=== PATIENT | female | born 2005 | race Two or more races ===

== ENCOUNTER 2023-05-24 04:48 | Observation (INO) | payer OTHER ==
[~2023-05-24] VITALS: Ht 167.6 cm; Wt 76.8 kg
[~2023-05-24 04:48] MED LIST: ACET-897 PO; PNV,1TAB3 PO; SERT50TA29 PO
[2023-05-24 06:02] LABS: VENOUS BASE EXCESS -0.3 (-2.0-2.0); VENOUS HCO3 24.2 MMOL/L (23.0-27.0); VENOUS O2 SATURATION 91.8 % (60.0-80.0); VENOUS PARTIAL PRESSURE CO2 39.3 mmHg (38.0-50.0); VENOUS PARTIAL PRESSURE O2 65.8 mmHg (30.0-50.0); VENOUS PH 7.408 UNITS (7.330-7.430); VENOUS STANDARD HCO3 24.1 MMOL/L; VENOUS TOTAL CO2 25.4 MMOL/L (24.0-28.0)
[2023-05-24 06:09] LABS: BASO % 0.2 % (0.0-1.0); EOS % 0.2 % (0.0-3.0); LYMPH # 1.1 10^3/uL (1.5-5.0); MEAN CORPUSCULAR HGB CONC 33.3 g/dl (32.0-36.5); MEAN CORPUSCULAR VOLUME 83.9 fl (80.0-96.0); MONO # 0.5 10^3/uL (0.0-0.8); MONO % 8.3 % (2.0-8.0); NEUTROPHILS % 70.8 % (36.0-66.0); PLATELET COUNT, AUTOMATED 280 10^3/uL (150-450); RED BLOOD COUNT 3.22 10^6/uL (4.00-5.40); WHITE BLOOD COUNT 5.6 10^3/uL (4.0-10.0)
[2023-05-24 06:33] LABS: CPK CREATINE PHOSPHOKINASE 83 U/L (34-145)
[2023-05-24 06:39] LABS: ALBUMIN 2.2 G/DL (3.2-5.2); ALKALINE PHOSPHATASE 63 U/L (46-116); ALT/SGPT 11 U/L (7.0-40); AST/SGOT 24 U/L (<34); BILIRUBIN,DIRECT 0.2 MG/DL (<0.4); BILIRUBIN,TOTAL 0.4 MG/DL (0.3-1.2); BLOOD UREA NITROGEN < 5 MG/DL (9-23); CALCIUM LEVEL 8.6 MG/DL (8.5-10.1); CARBON DIOXIDE LEVEL 24 MMOL/L (20-31); CHLORIDE LEVEL 104 MMOL/L (98-107); CK-MB VALUE MASS 2.1 NG/ML (<3.6); CREATININE FOR GFR 0.37 MG/DL (0.55-1.30); GLUCOSE, FASTING 78 MG/DL (60-100); MB/CK RELATIVE INDEX 2.53 (< OR =4); POTASSIUM SERUM 3.5 MMOL/L (3.5-5.1); SODIUM LEVEL 135 MMOL/L (136-145); THYROID STIMULATING HORMONE 1.332 uIU/ML (0.48-4.17); TOTAL PROTEIN 7.1 G/DL (5.7-8.2)
[2023-05-24 09:39] LABS: ABG BASE EXCESS -0.6 (-2.0-2.0); ABG HCO3 22.8 MMOL/L (22.0-26.0); ABG O2 SATURATION 98.6 % (95.0-99.0); ABG PARTIAL PRESSURE CO2 32.6 mmHg (35.0-45.0); ABG PARTIAL PRESSURE O2 126.8 mmHg (75.0-100.0); ABG TOTAL CO2 23.8 MMOL/L (22.0-29.0); ABG pH (ARTERIAL) 7.462 UNITS (7.350-7.450)
[2023-05-24 09:56] LABS: MB/CK RELATIVE INDEX 2.43 (< OR =4)
[2023-05-24] MEDS ORDERED: MED REC IN PROGRESS XX SCH (10:15)
[2023-05-24] MEDS ORDERED: HOME MED LIST COMPLETE! XX SCH (10:30)
[2023-05-24 17:19] VITALS: BP 130/88; TEMP 98.8; O2SAT 100
[2023-05-24] MEDS ORDERED: ACETAMINOPHEN 500 MG TAB PO ONE (18:15)
[2023-05-24] MEDS: PERCOCET 5MG/325MG TAB PO PRN (21:45)
[2023-05-24 22:00] VITALS: BP 132/95; TEMP 97.9; O2SAT 99
[2023-05-24 23:20] VITALS: BP 107/76; TEMP 97; O2SAT 100
[2023-05-25 02:31] VITALS: BP 125/80; TEMP 98.8; O2SAT 97
[2023-05-25] MEDS ORDERED: ACETAMINOPHEN TAB 650MG DOSE (2X325MG) PO ONE ×2 (03:00→14:00)
[2023-05-25] MEDS ORDERED: LIDOCAINE 5% (LIDODERM) PATCH TD ONE ×2 (03:00→14:00)
[2023-05-25] MEDS ORDERED: oxyCODONE 5MG TAB PO ONE (04:00)
[2023-05-25 05:42] LABS: LDH LACTATE DEHYDROGENASE 175 U/L (120-246)
[2023-05-25 05:43] LABS: IRON (FE) 24 UG/DL (50-170); PERCENT SATURATION 10.3 % (13.2-45.0); TOTAL IRON BINDING CAPACITY 233 UG/DL (250-425)
[2023-05-25 05:46] LABS: FERRITIN 58.4 NG/ML (7.3-270.7)
[2023-05-25 07:29] VITALS: BP 116/70; TEMP 98.2; O2SAT 100
[2023-05-25] MEDS: PERCOCET 5MG/325MG TAB PO PRN ×2 (08:25→15:34)
[2023-05-25 09:04] LABS: RHEUMATOID FACTOR QUANT < 3.5 IU/ML (<14)
[2023-05-25] MEDS ORDERED: NS 1,000 ML IV SCH (10:20)
[2023-05-25 11:13] LABS: BLOOD UREA NITROGEN < 5 MG/DL (9-23); CALCIUM LEVEL 8.3 MG/DL (8.5-10.1); CARBON DIOXIDE LEVEL 20 MMOL/L (20-31); CHLORIDE LEVEL 104 MMOL/L (98-107); CREATININE FOR GFR 0.35 MG/DL (0.55-1.30); GLUCOSE, FASTING 71 MG/DL (60-100); POTASSIUM SERUM 3.4 MMOL/L (3.5-5.1); SODIUM LEVEL 134 MMOL/L (136-145)
[2023-05-25 11:14] VITALS: BP 131/90
[2023-05-25 11:14] LABS: BASO % 0.2 % (0.0-1.0); EOS % 0.2 % (0.0-3.0); HEMATOCRIT 25.4 % (36.0-47.0); HEMOGLOBIN 8.5 g/dl (12.0-15.5); LYMPH # 0.8 10^3/uL (1.5-5.0); LYMPH % 15.7 % (24.0-44.0); MEAN CORPUSCULAR HEMOGLOBIN 28.4 pg (27.0-33.0); MEAN CORPUSCULAR HGB CONC 33.5 g/dl (32.0-36.5); MEAN CORPUSCULAR VOLUME 84.9 fl (80.0-96.0); MONO # 0.5 10^3/uL (0.0-0.8); MONO % 9.9 % (2.0-8.0); NEUTROPHILS # 3.6 10^3/uL (1.5-8.5); NEUTROPHILS % 73.6 % (36.0-66.0); PLATELET COUNT, AUTOMATED 265 10^3/uL (150-450); RED BLOOD COUNT 2.99 10^6/uL (4.00-5.40); WHITE BLOOD COUNT 4.8 10^3/uL (4.0-10.0)
[2023-05-25] MEDS ORDERED: KCL 10MEQ/100ML SWI (KRUN) 10 MEQ in IV 1 EA IV SCH (13:00)
[2023-05-25 13:13] LABS: MONO REFLEX EBV COMP NEGATIVE (NEGATIVE)
[2023-05-25 13:42] LABS: HIV 1&2 SCREEN NEGATIVE (NEGATIVE)
[2023-05-25] MEDS ORDERED: POTASSIUM CHLORIDE 10MEQ SR TABLET PO ONE (14:00)
[2023-05-25 14:41] LABS: MAGNESIUM LEVEL 1.5 MG/DL (1.8-2.4)
[2023-05-25] MEDS ORDERED: PERCOCET 5MG/325MG TAB PO ONE (15:30)
[2023-05-28 08:10] LABS: CYTOMEGALOVIRUS IgG ANTIBODY <0.60 U/mL (0.00-0.59); CYTOMEGALOVIRUS IgM ANTIBODY <30.0 AU/mL (0.0-29.9)
[2023-05-28 17:07] LABS: EBV AB TO NUCLEAR ANTIGEN >600.0 U/mL (0.0-17.9); EBV VIRAL CAPSID AG IgM <36.0 U/mL (0.0-35.9)
== END 2023-05-25 15:45 | disposition other institution (70) ==
LOC: M ED 04:48 → INTOOBSV 13:30 → M ED INP 13:30 → M MSPAV 17:12 → M PCU 23:20
PROVIDERS: ADMIT Advanced Practice Midwife; ATTEND Obstetrics & Gynecology
DX: O99.413 Diseases of the circulatory system complicating pregnancy, third trimester (principal); I31.39 Other pericardial effusion (noninflammatory); R07.9 Chest pain, unspecified; O99.511 Diseases of the respiratory system complicating pregnancy, first trimester; J90 Pleural effusion, not elsewhere classified; R59.0 Localized enlarged lymph nodes; O99.013 Anemia complicating pregnancy, third trimester; D50.9 Iron deficiency anemia, unspecified; Z3A.34 34 weeks gestation of pregnancy; R00.0 Tachycardia, unspecified; R82.71 Bacteriuria; R06.02 Shortness of breath; D57.3 Sickle-cell trait; Z79.899 Other long term (current) drug therapy; Z79.2 Long term (current) use of antibiotics

== ENCOUNTER 2023-06-06 17:41 | Outpatient (CLI) | payer OTHER ==
[~2023-06-06] VITALS: Ht 167.6 cm; Wt 72.8 kg
[2023-06-06] MEDS ORDERED: HYDR100T33 (18:05)
[2023-06-06] MEDS ORDERED: COLC0.6T47 (18:05)
[2023-06-06] MEDS ORDERED: PRED10TA2 (18:05)
[2023-06-06] MEDS ORDERED: SERT50TA29 (18:05)
[2023-06-06 18:14] VITALS: BP 135/85; O2SAT 99
[2023-06-06 19:06] VITALS: BP 139/87
== END 2023-06-06 19:24 | disposition home or self-care (01) ==
LOC: M LDO 17:41
PROVIDERS: ATTEND Obstetrics & Gynecology
DX: O36.8130 Decreased fetal movements, third trimester, not applicable or unspecified (principal); O26.893 Other specified pregnancy related conditions, third trimester; M32.9 Systemic lupus erythematosus, unspecified; Z3A.33 33 weeks gestation of pregnancy; Z79.52 Long term (current) use of systemic steroids; Z79.899 Other long term (current) drug therapy
CPT/HCPCS: 59025; G0463

== ENCOUNTER 2023-06-12 13:30 | Outpatient (CLI) | payer OTHER ==
[~2023-06-12] VITALS: Ht 167.6 cm; Wt 73.0 kg
[~2023-06-12 13:30] MED LIST changes: +ALBUTEROL SULFATE 2.5MG/0.5ML INH NEB SOLN INH PRN; +COLC0.6T47; +EPINEPHrine INJ 1 MG/ML 1ML AMP IM PRN; +HYDR100T33; +IRON SUCROSE 300 MG in NS 250 ML OVER 90 MIN. IV ONE; +NS 1,000 ML IV SCH; +PRED10TA2; +SERT50TA29; +diphenhydrAMINE 50MG/ML VIAL IV PRN; +methylPREDNISolone 125MG 2ML VIAL IV PRN
[2023-06-12 13:40] VITALS: BP 130/75; O2SAT 99
[2023-06-12] MEDS ORDERED: LABE20TAB PO (14:00)
[2023-06-12 15:50] VITALS: BP 137/83; O2SAT 98
== END 2023-06-12 15:50 | disposition home or self-care (01) ==
LOC: M INFU 13:30
PROVIDERS: ATTEND Nurse Practitioner Women's Health
DX: D50.9 Iron deficiency anemia, unspecified (principal)
CPT/HCPCS: 96365; 96366; J1756

== ENCOUNTER 2023-06-19 12:20 | Outpatient (CLI) | payer OTHER ==
[~2023-06-19] VITALS: Ht 167.6 cm; Wt 70.6 kg
[~2023-06-19 12:20] MED LIST changes: -COLC0.6T47; +COLC0.6T47 PO; -HYDR100T33; +HYDR100T33 PO; -IRON SUCROSE 300 MG in NS 250 ML OVER 90 MIN. IV ONE; +LABE20TAB PO; -NS 1,000 ML IV SCH; -PRED10TA2; +PRED10TA2 PO; -SERT50TA29
[2023-06-19 12:22] VITALS: BP 131/68; O2SAT 100
[2023-06-19] MEDS ORDERED: NS 1,000 ML IV SCH (12:30)
[2023-06-19] MEDS ORDERED: IRON SUCROSE 300 MG in NS 250 ML OVER 90 MIN. IV ONE (12:30)
[2023-06-19 14:50] VITALS: BP 119/72; O2SAT 100
== END 2023-06-19 14:50 | disposition home or self-care (01) ==
LOC: M INFU 12:20
PROVIDERS: ATTEND Nurse Practitioner Women's Health
DX: D50.9 Iron deficiency anemia, unspecified (principal)
CPT/HCPCS: 96365; 96366; J1756

== ENCOUNTER 2023-06-21 12:12 | Inpatient (IN) | payer OTHER ==
[2023-06-21] VITALS (7 sets, daily range): BP systolic 124–145; BP diastolic 58–90
[~2023-06-21] VITALS: Ht 167.6 cm; Wt 71.3 kg
[~2023-06-21 12:12] MED LIST changes: -ACET-683 PO; -COLA100C5 PO; -IBUP80TA PO; -OXYC-517 PO; -PRED5TA PO; +UNRESOLVED CLARIFICATION ENTRY XX SCH
[2023-06-21] MEDS ORDERED: LACTATED RINGER'S 1000 ML IV STA (12:14)
[2023-06-21] MEDS ORDERED: METHYLERGONOVINE MALEATE 0.2MG/ML 1ML VIAL IM PRN (12:15)
[2023-06-21] MEDS ORDERED: OXYTOCIN DRIP 30 UNITS in IV 1 EA IV PRN ×6 (12:15)
[2023-06-21] MEDS ORDERED: OXYTOCIN INJ 10UNITS/ML 1ML VIAL IM PRN (12:15)
[2023-06-21] MEDS ORDERED: CARBOPROST TROMETHAMINE 250 MCG/ML AMP IM PRN (12:15)
[2023-06-21] MEDS: LR 1,000 ML IV SCH ×2 (12:15→20:15)
[2023-06-21] MEDS ORDERED: TRANEXAMIC ACID INJection 1,000 MG in NS 100 ML IV PRN (12:15)
[2023-06-21] MEDS ORDERED: LIDOCAINE 1% MDV 20ML VIAL INFIL PRN (12:15)
[2023-06-21 13:27] LABS: HEMATOCRIT 28.8 % (36.0-47.0); HEMOGLOBIN 10.3 g/dl (12.0-15.5); MEAN CORPUSCULAR HEMOGLOBIN 31.2 pg (27.0-33.0); MEAN CORPUSCULAR HGB CONC 35.8 g/dl (32.0-36.5); MEAN CORPUSCULAR VOLUME 87.3 fl (80.0-96.0); PLATELET COUNT, AUTOMATED 301 10^3/uL (150-450); WHITE BLOOD COUNT 6.7 10^3/uL (4.0-10.0)
[2023-06-21 13:52] LABS: LDH LACTATE DEHYDROGENASE 157 U/L (120-246)
[2023-06-21 13:53] LABS: ALT/SGPT 14 U/L (7.0-40); AST/SGOT 17 U/L (<34); BILIRUBIN,TOTAL 0.3 MG/DL (0.3-1.2); CREATININE FOR GFR 0.37 MG/DL (0.55-1.30)
[2023-06-21] MEDS ORDERED: miSOPROStol 25MCG 1/4 TABLET PO SCH (14:00)
[2023-06-21 15:33] LABS: APPEARANCE, URINE CLEAR (CLEAR); BACTERIA, URINE AUTO NEGATIVE (NEGATIVE); BILIRUBIN, URINE AUTO NEGATIVE (NEGATIVE); BLOOD, URINE BLOOD NEGATIVE (NEGATIVE); COLOR, URINE YELLOW (YELLOW); GLUCOSE, URINE (UA) AUTO NEGATIVE (NEGATIVE); KETONE, URINE AUTO NEGATIVE (NEGATIVE); LEUKOCYTE ESTERASE, URINE AUTO 3+ (NEGATIVE); NITRITE, URINE AUTO NEGATIVE (NEGATIVE); PROTEIN, URINE AUTO NEGATIVE (NEGATIVE); RBC, URINE AUTO 0 /HPF (0-3); SPECIFIC GRAVITY URINE AUTO 1.011 (1.002-1.035); SQUAMOUS EPITHELIAL CELL UR AU 1 /HPF (0-6); UROBILINOGEN, URINE AUTO 0.2 mg/dL (0.0-2.0); WBC, URINE AUTO 0 /HPF (0-3)
[2023-06-21 15:43] LABS: TOTAL PROTEIN,RANDOM URINE 10.6 MG/DL (0.0-14.0)
[2023-06-21 15:48] LABS: CREATININE,RANDOM URINE 48.6 MG/DL
[2023-06-21] MEDS: BETAMETHASONE SOLUSPAN 6MG/ML 5ML VIAL IM SCH (16:14)
[2023-06-21] MEDS ORDERED: HOME MED LIST COMPLETE! XX SCH (17:55)
[2023-06-21] MEDS: miSOPROStol 50MCG 1/2 TABLET PO SCH (20:31)
[2023-06-21] MEDS ORDERED: predniSONE 5 MG TAB PO SCH (21:00)
[2023-06-21] MEDS ORDERED: predniSONE 10MG TAB PO SCH (21:00)
[2023-06-21] MEDS: HYDROXYCHLOROQUINE 200 MG TAB PO SCH (21:31)
[2023-06-21] MEDS: predniSONE 5 MG TAB PO SCH (21:32)
[2023-06-21] MEDS: LABETALOL 200 MG TAB PO SCH (21:33)
[2023-06-22] VITALS (32 sets, daily range): BP systolic 111–141; BP diastolic 58–93
[2023-06-22] MEDS ORDERED: NALBUPHINE HCL 1MG/0.1ML (100MG/10ML) MDV IV PRN (00:45)
[2023-06-22] MEDS ORDERED: PROMETHAZINE 25MG/ML 1ML VIAL IV PRN (00:45)
[2023-06-22] MEDS: miSOPROStol 50MCG 1/2 TABLET PO SCH ×6 (00:57→21:59)
[2023-06-22] MEDS: LR 1,000 ML IV SCH ×3 (04:15→20:15)
[2023-06-22] MEDS: LABETALOL 200 MG TAB PO SCH ×3 (06:28→22:04)
[2023-06-22] MEDS: PRENATAL VITAMINS CHEWABLE TABLET PO SCH (08:55)
[2023-06-22] MEDS: SERTRALINE HCL 50 MG TAB PO SCH (08:56)
[2023-06-22] MEDS: predniSONE 5 MG TAB PO SCH ×2 (10:51→21:59)
[2023-06-22] MEDS: HYDROXYCHLOROQUINE 200 MG TAB PO SCH ×2 (10:51→21:59)
[2023-06-22] MEDS: BETAMETHASONE SOLUSPAN 6MG/ML 5ML VIAL IM SCH (15:36)
[2023-06-23] VITALS (39 sets, daily range): BP systolic 117–195; BP diastolic 57–117; TEMP 97.4; O2SAT 98–100
[2023-06-23] MEDS: miSOPROStol 50MCG 1/2 TABLET PO SCH (02:35)
[2023-06-23] MEDS ORDERED: ONDANSETRON 4MG 2ML VIAL IV ONE (05:00)
[2023-06-23] MEDS ORDERED: OXYTOCIN DRIP 30 UNITS in IV 1 EA IV SCH ×2 (05:05→12:35)
[2023-06-23] MEDS ORDERED: EPIDURAL/PCA KEYS XX PRN (06:15)
[2023-06-23] MEDS ORDERED: FENTANYL/ROPIVACAINE/NACL BAG 100 ML EPIDURAL SCH (06:15)
[2023-06-23] MEDS ORDERED: ONDANSETRON 4MG 2ML VIAL IV PRN ×3 (06:15→12:35)
[2023-06-23] MEDS ORDERED: NALOXONE INJ 0.4MG/1ML VIAL IV PRN ×3 (06:15→11:05)
[2023-06-23] MEDS ORDERED: LR 500 ML IV PRN (06:15)
[2023-06-23] MEDS ORDERED: diphenhydrAMINE 50MG/ML VIAL IV PRN ×2 (06:15→11:05)
[2023-06-23] MEDS ORDERED: ePHEDrine SULFATE 25 MG/5 ML(5MG/ML) SYRINGE IVP PRN (06:15)
[2023-06-23] MEDS: LR 1,000 ML IV SCH ×5 (06:31→20:35)
[2023-06-23] MEDS: LABETALOL 200 MG TAB PO SCH ×3 (06:35→22:33)
[2023-06-23] MEDS ORDERED: PRENATAL VITAMINS CHEWABLE TABLET PO SCH (09:00)
[2023-06-23] MEDS: HYDROXYCHLOROQUINE 200 MG TAB PO SCH ×2 (09:28→20:34)
[2023-06-23] MEDS: predniSONE 5 MG TAB PO SCH ×2 (09:28→20:43)
[2023-06-23] MEDS: PRENATAL VITAMINS CHEWABLE TABLET PO SCH (09:28)
[2023-06-23] MEDS: SERTRALINE HCL 50 MG TAB PO SCH (09:28)
[2023-06-23] MEDS ORDERED: ceFAZolin SOD 2 GM in IV 1 EA IV ONE (10:55)
[2023-06-23] MEDS ORDERED: AZITHROMYCIN INJ 500 MG, VIAL MATE ADAPTER 1 EACH in NS 250 ML IV ONE (10:55)
[2023-06-23] MEDS ORDERED: BICITRA 30ML SOLN UDC PO ONE (10:55)
[2023-06-23] MEDS ORDERED: MORPHINE PRES-FREE INJ 10 MG/10 ML VIAL As Ordered ONE (11:04)
[2023-06-23] MEDS ORDERED: METOCLOPRAMIDE INJ 10MG/2ML VIAL IV PRN ×2 (11:05→12:35)
[2023-06-23] MEDS ORDERED: **NOTE PATIENT COMMENT** MISC XX SCH (11:05)
[2023-06-23] MEDS ORDERED: NORCO, ANEXSIA 5/325MG TABLET (HYDROcodone/ACETAMINOPHEN) PO ONE (11:05)
[2023-06-23] MEDS ORDERED: LIDOCAINE 2% W/EPINEPHRINE 20ML VIAL **PRES FREE As Ordered ONE (11:05)
[2023-06-23] MEDS ORDERED: OXYTOCIN 30UNITS IN 0.9% NaCl 500ML IV BAG As Ordered ONE (11:06)
[2023-06-23] MEDS ORDERED: ONDANSETRON 4MG 2ML VIAL As Ordered ONE (11:32)
[2023-06-23] MEDS ORDERED: PHENYLephrine 500MCG 5ML (100MCG/ML) SYRINGE As Ordered ONE (11:35)
[2023-06-23] MEDS ORDERED: ACETAMINOPHEN 1000MG 100ML IV BAG As Ordered ONE (11:37)
[2023-06-23 11:45] LABS: CORD GAS ABE V -2.3; CORD GAS HCO3 V 24.3 MMOL/L; CORD GAS O2 SAT V 76.1 %; CORD GAS PCO2 V 48.4 mmHg; CORD GAS PH V 7.318 UNITS; CORD GAS PO2 V 32.5 mmHg; CORD GAS TCO2 V 25.8 MMOL/L
[2023-06-23 11:47] LABS: CORD GAS ABE A -4.8; CORD GAS HCO3 A 24.2 MMOL/L; CORD GAS PCO2 A 61.5 mmHg; CORD GAS PH A 7.212 UNITS; CORD GAS PO2 A 19.5 mmHg; CORD GAS SBC A 19.3 MMOL/L
[2023-06-23] MEDS ORDERED: SIMETHICONE 80MG CHEW TAB PO PRN (12:35)
[2023-06-23] MEDS ORDERED: oxyCODONE 5MG TAB PO PRN ×2 (12:35)
[2023-06-23] MEDS ORDERED: METHYLERGONOVINE MALEATE 0.2MG/ML 1ML VIAL IM PRN (12:35)
[2023-06-23] MEDS ORDERED: RHOGAM 300MCG (1500IU) INJ IM SCH (12:35)
[2023-06-23] MEDS ORDERED: KETOROLAC 30 MG/ML 1ML VIAL As Ordered ONE (13:04)
[2023-06-23] MEDS: KETOROLAC 30 MG/ML 1ML VIAL IV SCH ×3 (13:08→23:56)
[2023-06-23] MEDS: SLF 3 ML SYR IV SCH ×2 (14:25→20:34)
[2023-06-23] MEDS: DOCUSATE SODIUM 100MG CAPSULE PO SCH ×2 (14:25→20:34)
[2023-06-23] MEDS: ACETAMINOPHEN 500 MG TAB PO SCH ×2 (17:44→23:56)
[2023-06-24] MEDS: LABETALOL 200 MG TAB PO SCH ×3 (05:39→21:54)
[2023-06-24] MEDS: KETOROLAC 30 MG/ML 1ML VIAL IV SCH (05:40)
[2023-06-24] MEDS: ACETAMINOPHEN 500 MG TAB PO SCH ×4 (05:40→23:33)
[2023-06-24 05:45] VITALS: BP 106/51
[2023-06-24 08:09] LABS: HEMATOCRIT 23.4 % (36.0-47.0); HEMOGLOBIN 7.8 g/dl (12.0-15.5); MEAN CORPUSCULAR HGB CONC 33.3 g/dl (32.0-36.5); PLATELET COUNT, AUTOMATED 258 10^3/uL (150-450); WHITE BLOOD COUNT 14.9 10^3/uL (4.0-10.0)
[2023-06-24] MEDS: HYDROXYCHLOROQUINE 200 MG TAB PO SCH ×2 (08:22→21:20)
[2023-06-24] MEDS: PRENATAL VITAMINS CHEWABLE TABLET PO SCH (08:22)
[2023-06-24] MEDS: predniSONE 5 MG TAB PO SCH ×2 (08:22→21:19)
[2023-06-24] MEDS: DOCUSATE SODIUM 100MG CAPSULE PO SCH ×2 (08:22→21:19)
[2023-06-24] MEDS: SERTRALINE HCL 50 MG TAB PO SCH (08:22)
[2023-06-24 10:00] VITALS: BP 102/52; O2SAT 100
[2023-06-24] MEDS: IBUPROFEN 800 MG TAB PO SCH ×2 (14:21→23:33)
[2023-06-24 14:22] VITALS: BP 112/61; O2SAT 100
[2023-06-24 18:00] VITALS: BP 118/66; O2SAT 99
[2023-06-24] MEDS ORDERED: PILL CUTTER 1 EACH XX PRN (21:20)
[2023-06-24 22:00] VITALS: BP 123/61; O2SAT 99
[2023-06-25 02:00] VITALS: BP 113/55; O2SAT 99
[2023-06-25 06:00] VITALS: BP 109/65
[2023-06-25] MEDS: LABETALOL 200 MG TAB PO SCH (06:00)
[2023-06-25] MEDS: ACETAMINOPHEN 500 MG TAB PO SCH ×2 (06:01→11:58)
[2023-06-25] MEDS: IBUPROFEN 800 MG TAB PO SCH (07:29)
[2023-06-25] MEDS ORDERED: MEASLES,MUMPS,RUBELLA VACCINE INJ (MMR-II) SC.IMMUN ONE (09:00)
[2023-06-25] MEDS: predniSONE 5 MG TAB PO SCH (09:34)
[2023-06-25] MEDS: PRENATAL VITAMINS CHEWABLE TABLET PO SCH (09:34)
[2023-06-25] MEDS: SERTRALINE HCL 50 MG TAB PO SCH (09:34)
[2023-06-25] MEDS: DOCUSATE SODIUM 100MG CAPSULE PO SCH (09:35)
[2023-06-25] MEDS: HYDROXYCHLOROQUINE 200 MG TAB PO SCH (09:35)
[2023-06-25] MEDS ORDERED: ACET-683 PO (09:38)
[2023-06-25] MEDS ORDERED: COLA100C5 PO (09:38)
[2023-06-25] MEDS ORDERED: OXYC-517 PO (09:38)
[2023-06-25] MEDS ORDERED: PRED5TA PO (09:38)
[2023-06-25] MEDS ORDERED: IBUP80TA PO (09:38)
[2023-06-25 10:00] VITALS: BP 116/61; O2SAT 100
[2023-06-25] MEDS ORDERED: INFLUENZA QUADRIVALENT PF VACCINE 0.5ML SYRINGE IM.IMMUN ONE (12:00)
[2023-06-25] MEDS ORDERED: BOOSTRIX VACCINE (TETANUS/DIPHTH/ACEL. PERTUSSIS) 0.5ML SYR IM.IMMUN ONE (12:15)
== END 2023-06-25 13:30 | disposition home or self-care (01) | DRG 773 ==
LOC: M LDI 12:12 → M OBS 06-23 14:33
PROVIDERS: ADMIT Obstetrics & Gynecology; ATTEND Obstetrics & Gynecology
PROC: 10D00Z1 Extraction of Products of Conception, Low, Open Approach (ICD-10-PCS; principal; 2023-06-23 10:56)
DX: O41.03X0 Oligohydramnios, third trimester, not applicable or unspecified (principal); Z37.0 Single live birth; Z3A.36 36 weeks gestation of pregnancy; M32.9 Systemic lupus erythematosus, unspecified; O26.899 Other specified pregnancy related conditions, unspecified trimester; Z79.899 Other long term (current) drug therapy; Z79.52 Long term (current) use of systemic steroids; O13.4 Gestational [pregnancy-induced] hypertension without significant proteinuria, complicating childbirth; F39 Unspecified mood [affective] disorder; O99.344 Other mental disorders complicating childbirth; O76 Abnormality in fetal heart rate and rhythm complicating labor and delivery

== ENCOUNTER → 2023-06-21 | Outpatient (CLI) | payer OTHER ==
[~2023-06-21] MED LIST changes: +ACET-683 PO; -ALBUTEROL SULFATE 2.5MG/0.5ML INH NEB SOLN INH PRN; +COLA100C5 PO; -EPINEPHrine INJ 1 MG/ML 1ML AMP IM PRN; +IBUP80TA PO; +OXYC-517 PO; +PRED5TA PO; -diphenhydrAMINE 50MG/ML VIAL IV PRN; -methylPREDNISolone 125MG 2ML VIAL IV PRN
== END ==
LOC: M RAD 11:03
PROVIDERS: ATTEND Obstetrics & Gynecology
DX: O26.893 Other specified pregnancy related conditions, third trimester (principal); M32.9 Systemic lupus erythematosus, unspecified; I31.9 Disease of pericardium, unspecified; O10.013 Pre-existing essential hypertension complicating pregnancy, third trimester; Z3A.35 35 weeks gestation of pregnancy

== ENCOUNTER 2023-06-26 13:00 | Outpatient (CLI) | payer OTHER ==
[~2023-06-26] VITALS: Ht 165.1 cm; Wt 71.3 kg
[2023-06-26 13:00] VITALS: BP 136/74; O2SAT 100
[~2023-06-26 13:00] MED LIST changes: +ACET-683 PO; +ALBUTEROL SULFATE 2.5MG/0.5ML INH NEB SOLN INH PRN; +COLA100C5 PO; +EPINEPHrine INJ 1 MG/ML 1ML AMP IM PRN; +IBUP80TA PO; +IRON SUCROSE 300 MG in NS 250 ML OVER 90 MIN. IV ONE; +NS 1,000 ML IV SCH; +OXYC-517 PO; +PRED5TA PO; -UNRESOLVED CLARIFICATION ENTRY XX SCH; +diphenhydrAMINE 50MG/ML VIAL IV PRN; +methylPREDNISolone 125MG 2ML VIAL IV PRN
[2023-06-26 15:20] VITALS: BP 128/82; O2SAT 98
== END 2023-06-26 15:30 | disposition home or self-care (01) ==
LOC: M INFU 13:00
PROVIDERS: ATTEND Nurse Practitioner Women's Health
DX: D50.9 Iron deficiency anemia, unspecified (principal)
CPT/HCPCS: 96365; 96366; J1756

== ENCOUNTER 2024-01-03 14:52 | Emergency (ER) | payer OTHER ==
[~2024-01-03] VITALS: Ht 167.6 cm; Wt 77.3 kg
[~2024-01-03 14:52] MED LIST changes: -ALBUTEROL SULFATE 2.5MG/0.5ML INH NEB SOLN INH PRN; -EPINEPHrine INJ 1 MG/ML 1ML AMP IM PRN; -IRON SUCROSE 300 MG in NS 250 ML OVER 90 MIN. IV ONE; -NS 1,000 ML IV SCH; -diphenhydrAMINE 50MG/ML VIAL IV PRN; -methylPREDNISolone 125MG 2ML VIAL IV PRN
[2024-01-03] MEDS ORDERED: BACT800T5 PO (18:10)
[2024-01-03 18:22] VITALS: BP 132/73; TEMP 96.7; O2SAT 97
== END 2024-01-03 18:29 | disposition home or self-care (01) ==
LOC: M ED 14:52
DX: L03.032 Cellulitis of left toe (principal); I10 Essential (primary) hypertension; F41.9 Anxiety disorder, unspecified; F32.9 Major depressive disorder, single episode, unspecified; Z79.899 Other long term (current) drug therapy

== ENCOUNTER 2024-02-05 13:04 | Emergency (ER) | payer OTHER ==
[~2024-02-05] VITALS: Ht 167.6 cm; Wt 74.3 kg
[~2024-02-05 13:04] MED LIST changes: +BACT800T5 PO
[2024-02-05 14:28] LABS: BASO % 0.4 % (0.0-1.0); EOS % 0.5 % (0.0-3.0); HEMATOCRIT 39.7 % (36.0-47.0); HEMOGLOBIN 13.8 g/dl (12.0-15.5); LYMPH # 1.3 10^3/uL (1.5-5.0); LYMPH % 22.8 % (24.0-44.0); MEAN CORPUSCULAR HEMOGLOBIN 29.8 pg (27.0-33.0); MEAN CORPUSCULAR HGB CONC 34.8 g/dl (32.0-36.5); MEAN CORPUSCULAR VOLUME 85.7 fl (80.0-96.0); MONO # 0.4 10^3/uL (0.0-0.8); MONO % 6.6 % (2.0-8.0); NEUTROPHILS # 3.9 10^3/uL (1.5-8.5); NEUTROPHILS % 69.3 % (36.0-66.0); PLATELET COUNT, AUTOMATED 291 10^3/uL (150-450); RED BLOOD COUNT 4.63 10^6/uL (4.00-5.40); WHITE BLOOD COUNT 5.6 10^3/uL (4.0-10.0)
[2024-02-05 14:53] LABS: LIPASE 19 U/L (12-53)
[2024-02-05 14:55] LABS: ALBUMIN 4.6 G/DL (3.2-5.2); ALKALINE PHOSPHATASE 80 U/L (46-116); ALT/SGPT 39 U/L (7.0-40); AST/SGOT 44 U/L (<34); BILIRUBIN,DIRECT 0.1 MG/DL (<0.4); BILIRUBIN,TOTAL 0.4 MG/DL (0.3-1.2); BLOOD UREA NITROGEN 6 MG/DL (9-23); CALCIUM LEVEL 10.1 MG/DL (8.5-10.1); CARBON DIOXIDE LEVEL 19 MMOL/L (20-31); CHLORIDE LEVEL 105 MMOL/L (98-107); CREATININE FOR GFR 0.46 MG/DL (0.55-1.30); GLUCOSE, FASTING 66 MG/DL (60-100); POTASSIUM SERUM 3.8 MMOL/L (3.5-5.1); SODIUM LEVEL 137 MMOL/L (136-145); TOTAL PROTEIN 9.1 G/DL (5.7-8.2)
[2024-02-05 15:03] LABS: HCG, SERUM QUALITATIVE NEGATIVE (NEGATIVE)
[2024-02-05] MEDS: ONDANSETRON 4MG 2ML VIAL IV ONE (16:57)
[2024-02-05] MEDS: ACETAMINOPHEN *IV* 1,000 MG in IV 1 EA IV ONE (16:57)
[2024-02-05] MEDS: FAMOTIDINE 20MG/2ML VIAL IVP ONE (16:58)
[2024-02-05 18:45] VITALS: BP 131/70; TEMP 97.5; O2SAT 99
== END 2024-02-05 18:50 | disposition home or self-care (01) ==
LOC: M ED 13:04
DX: K29.70 Gastritis, unspecified, without bleeding (principal); I10 Essential (primary) hypertension; J90 Pleural effusion, not elsewhere classified; Z79.899 Other long term (current) drug therapy
CPT/HCPCS: 80048; 80076; 81001; 83690; 84703; 85025; 87486; 87581; 87633; 87798; 96365; 96366; 96375; 99284; J0131; J2405; S0028

== ENCOUNTER 2024-04-16 17:05 | Emergency (ER) | payer OTHER ==
[~2024-04-16] VITALS: Ht 167.6 cm; Wt 75.9 kg
[2024-04-16] MEDS ORDERED: PRED10TA2 (17:47)
[2024-04-16] MEDS ORDERED: PLAQ200T4 (17:47)
[2024-04-16 18:25] LABS: BASO % 0.4 % (0.0-1.0); HEMATOCRIT 29.5 % (36.0-47.0); HEMOGLOBIN 10.2 g/dl (12.0-15.5); LYMPH # 0.9 10^3/uL (1.5-5.0); LYMPH % 16.3 % (24.0-44.0); MEAN CORPUSCULAR HEMOGLOBIN 30.1 pg (27.0-33.0); MEAN CORPUSCULAR HGB CONC 34.6 g/dl (32.0-36.5); MONO # 0.4 10^3/uL (0.0-0.8); MONO % 6.7 % (2.0-8.0); NEUTROPHILS # 4.2 10^3/uL (1.5-8.5); NEUTROPHILS % 76.2 % (36.0-66.0); PLATELET COUNT, AUTOMATED 211 10^3/uL (150-450); RED BLOOD COUNT 3.39 10^6/uL (4.00-5.40); WHITE BLOOD COUNT 5.5 10^3/uL (4.0-10.0)
[2024-04-16 18:41] LABS: INR 1.12; PROTHROMBIN TIME 14.1 SECONDS (12.5-14.5)
[2024-04-16 19:01] LABS: CK-MB VALUE MASS 11.6 NG/ML (<3.6)
[2024-04-16 19:04] LABS: CPK CREATINE PHOSPHOKINASE 542 U/L (34-145); MB/CK RELATIVE INDEX 2.14 (< OR =4)
[2024-04-16 19:05] LABS: ALBUMIN 3.7 G/DL (3.2-5.2); ALKALINE PHOSPHATASE 64 U/L (46-116); ALT/SGPT 36 U/L (7.0-40); AST/SGOT 35 U/L (<34); BILIRUBIN,DIRECT 0.1 MG/DL (<0.4); BILIRUBIN,TOTAL 0.3 MG/DL (0.3-1.2); BLOOD UREA NITROGEN 6 MG/DL (9-23); CALCIUM LEVEL 9.5 MG/DL (8.5-10.1); CARBON DIOXIDE LEVEL 25 MMOL/L (20-31); CHLORIDE LEVEL 107 MMOL/L (98-107); CREATININE FOR GFR 0.49 MG/DL (0.55-1.30); GLUCOSE, FASTING 116 MG/DL (60-100); POTASSIUM SERUM 3.5 MMOL/L (3.5-5.1); SODIUM LEVEL 138 MMOL/L (136-145); THYROID STIMULATING HORMONE 0.249 uIU/ML (0.48-4.17); THYROXINE (T4) 10.2 UG/DL (5.5-11.1); TOTAL PROTEIN 7.7 G/DL (5.7-8.2)
[2024-04-16 19:17] LABS: HCG, SERUM QUALITATIVE NEGATIVE (NEGATIVE)
[2024-04-16 21:32] LABS: PROCALCITONIN <0.04 ng/ml
[2024-04-16 22:00] VITALS: TEMP 98
[2024-04-16 22:15] VITALS: BP 132/64; O2SAT 99
[2024-04-16] MEDS ORDERED: PRED20TA PO (22:25)
[2024-04-16] MEDS: methylPREDNISolone 125MG 2ML VIAL IV ONE (22:32)
== END 2024-04-16 22:35 | disposition home or self-care (01) ==
LOC: M ED 17:05
DX: R07.1 Chest pain on breathing (principal); I31.39 Other pericardial effusion (noninflammatory); Z79.899 Other long term (current) drug therapy
CPT/HCPCS: 71046; 71275; 80048; 80076; 82550; 82553; 83605; 83880; 84145; 84436; 84443; 84484; 84703; 85025; 85610; 85652; 86140; 87486; 87581; 87633; 87798; 93005; 96374; 99284; J2919

== ENCOUNTER 2025-03-12 19:55 | Emergency (ER) | payer OTHER ==
[~2025-03-12] VITALS: Ht 165.1 cm; Wt 65.8 kg
[~2025-03-12 19:55] MED LIST changes: +PLAQ200T4; +PRED10TA2; +PRED20TA PO
[2025-03-12 20:49] LABS: BASO # 0.0 10^3/uL (0.0-0.2); BASO % 0.2 % (0.0-1.0); EOS # 0.0 10^3/uL (0.0-0.5); EOS % 0.0 % (0.0-3.0); LYMPH # 1.7 10^3/uL (1.5-5.0); LYMPH % 33.0 % (24.0-44.0); MONO # 0.2 10^3/uL (0.0-0.8); MONO % 4.4 % (2.0-8.0); NEUTROPHILS # 3.3 10^3/uL (1.5-8.5); NEUTROPHILS % 62.2 % (36.0-66.0); PLATELET COUNT, AUTOMATED 201 10^3/uL (150-450)
[2025-03-12 20:59] LABS: KETONE, URINE AUTO RFX NEGATIVE (NEGATIVE); LEUKOCYTE ESTERASE UR AUTO RFX NEGATIVE (NEGATIVE); MUCUS, URINE RFX SMALL (NEGATIVE); NITRITE, URINE AUTO RFX NEGATIVE (NEGATIVE); RBC, URINE AUTO RFX 1 /HPF (0-3); SQUAM EPITHELIAL CELL UR AURFX 27 /HPF (0-6); WBC, URINE AUTO RFX 2 /HPF (0-3)
[2025-03-12 21:22] LABS: ALT/SGPT 18 U/L (7.0-40); AST/SGOT 38 U/L (<34); CALCIUM LEVEL 9.1 MG/DL (8.5-10.1); CARBON DIOXIDE LEVEL 23 MMOL/L (20-31); CHLORIDE LEVEL 101 MMOL/L (98-107); CREATININE FOR GFR 0.51 MG/DL (0.55-1.30); GLOMERULAR FILTRATION RATE > 90.0 (>60); POTASSIUM SERUM 4.3 MMOL/L (3.5-5.1); SODIUM LEVEL 136 MMOL/L (136-145)
[2025-03-12 22:01] LABS: HCG, SERUM QUALITATIVE NEGATIVE (NEGATIVE)
[2025-03-12 22:03] VITALS: TEMP 97.8
[2025-03-12 23:55] VITALS: BP 124/73; O2SAT 98
[2025-03-13] MEDS ORDERED: PRED20TA PO (00:03)
[2025-03-13] MEDS: predniSONE 20 MG TAB PO ONE (00:25)
== END 2025-03-13 00:32 | disposition home or self-care (01) ==
LOC: M ED 19:55
DX: I77.6 Arteritis, unspecified (principal); M32.9 Systemic lupus erythematosus, unspecified; Z79.899 Other long term (current) drug therapy
CPT/HCPCS: 80048; 80076; 81001; 83690; 84703; 85025; 99284; J7512